=== PATIENT | female | born 1970 | race Two or more races ===

== ENCOUNTER 2017-06-04 09:54 | Emergency (ER) | payer MEDICAID, OTHER ==
[~2017-06-04] VITALS: Ht 162.6 cm; Wt 81.6 kg
[2017-06-04 11:12] LABS: Basophils # (auto) 0.1 uL; Basophils % (auto) 1.6 % (0.0-2.0); Eosinophils # (auto) 0.2 uL; Eosinophils % (auto) 3.5 % (0.0-7.0); Hematocrit 33.2 % (36.0-46.0); Lymphocytes # (auto) 1.7 uL; Lymphocytes % (auto) 23.9 % (10.0-50.0); Mean Corpuscular Hemoglobin 20.1 pg (28.0-32.0); Mean Corpuscular Hgb Conc. 30.1 g/dL (32.0-36.0); Mean Corpuscular Volume 66.7 fL (80.0-100.0); Mean Platelet Volume 8.4 fL (6.9-10.8); Monocytes # (auto) 0.4 uL; Neutrophils # (auto) 4.5 uL; Nucleated Red Blood Cells % 0.2 %; Platelet Count (auto) 411 10^3/uL (140-450)
[2017-06-04 11:13] LABS: Albumin 3.8 g/dL (3.4-5.0); Bilirubin, Total 0.2 mg/dL (0.2-1.0); Calcium 8.1 mg/dL (8.5-10.1); Potassium 3.8 mmol/L (3.5-5.1); Total Protein 7.9 g/dL (6.4-8.2)
[2017-06-04 13:52] LABS: Anisocytosis Moderate; Hypochromia Marked; Microcytosis Marked; Ovalocytes FEW; Platelet Estimate Adequate
[2017-06-04] MEDS ORDERED: SODIUM CHLORIDE 0.9% 1,000 ML IV ONE (15:01)
[2017-06-04 15:28] VITALS: BP 133/86
== END 2017-06-04 18:57 | disposition home or self-care (01) ==
LOC: ER 09:54
DX: D25.9 Leiomyoma of uterus, unspecified (principal); D50.9 Iron deficiency anemia, unspecified
CPT/HCPCS: 36415; 76830; 76856; 80053; 83735; 84443; 84702; 85025; 96360; 99285; J7030

== ENCOUNTER 2018-02-08 09:19 | Inpatient (IN) | payer MEDICAID ==
[~2018-02-08] VITALS: Ht 162.6 cm; Wt 89.2 kg
[2018-02-08] MEDS ORDERED: KETOROLAC TROMETH 60MG/2ML VIAL IM ONE (11:15)
[2018-02-08 13:53] LABS: Eosinophils # (auto) 0 uL; Eosinophils % (auto) 0.1 % (0.0-7.0); Lymphocytes # (auto) 2.1 uL; Monocytes # (auto) 0.6 uL
[2018-02-08 13:54] LABS: Basophils # (auto) 0.2 uL; Basophils % (auto) 1.6 % (0.0-2.0); Hematocrit 34.3 % (36.0-46.0); Hemoglobin 10.5 g/dL (12.2-16.2); Lymphocytes % (auto) 20.8 % (10.0-50.0); Mean Corpuscular Hgb Conc. 30.5 g/dL (32.0-36.0); Mean Corpuscular Volume 62.5 fL (80.0-100.0); Monocytes % (auto) 5.7 % (0.0-12.0); Neutrophils # (auto) 7.1 uL; Neutrophils % (auto) 71.8 % (37.0-80.0); Platelet Count (auto) 423 10^3/uL (140-450); Red Blood Cells 5.49 10^6/uL (4.0-5.20); White Blood Cell 9.9 10^3/uL (4.4-10.8)
[2018-02-08 13:59] LABS: Red Cell Distribution Width 21.9 % (11.8-14.3)
[2018-02-08 14:09] LABS: INR 1.02 (0.9-1.15); Partial Thromboplastin Time 28.8 sec (23.78-33.04); Prothrombin Time 10.9 sec (9.27-12.13)
[2018-02-08 14:24] LABS: Albumin 3.6 g/dL (3.4-5.0); BUN/Creatinine Ratio 18.8; Calcium 8.4 mg/dL (8.5-10.1); Magnesium 2.1 mg/dL (1.6-2.6); Potassium 3.4 mmol/L (3.5-5.1)
[2018-02-08 14:26] LABS: Bilirubin, Total 0.2 mg/dL (0.2-1.0)
[2018-02-08] MEDS ORDERED: DOCUSATE SOD 100 MG CAP PO PRN (16:15)
[2018-02-08] MEDS ORDERED: MORPHINE SULFATE 8mg/ml INJ SDV IV PRN (16:15)
[2018-02-08] MEDS ORDERED: ONDANSETRON HCL 4 MG/2 ML VIAL IV PRN (16:15)
[2018-02-08] MEDS ORDERED: TEMAZEPAM 15 MG CAP PO PRN (16:15)
[2018-02-08] MEDS ORDERED: ACETAMINOPHEN 325 MG TAB PO PRN (16:15)
[2018-02-08] MEDS ORDERED: POTASSIUM CHL 10 Meq TABLET PO ONE (16:15)
[2018-02-08] MEDS: HYDROcodone-ACET 5/325MG TAB PO PRN (16:58)
[2018-02-08] MEDS: diphenhdrAMINE HCL 25 MG CAP PO SCH ×2 (17:07→21:42)
[2018-02-08] MEDS: SODIUM CHLOR 0.9% PF (SALINE LOCK) 10ML VIAL/SYR IV SCH (21:42)
[2018-02-08] MEDS: ASCORBIC ACID 500 MG TAB PO SCH (21:43)
[2018-02-08 22:05] VITALS: BP 142/99
[2018-02-09] MEDS: SODIUM CHLOR 0.9% PF (SALINE LOCK) 10ML VIAL/SYR IV SCH ×3 (05:35→20:42)
[2018-02-09 05:49] VITALS: BP 149/87
[2018-02-09] MEDS: diphenhdrAMINE HCL 25 MG CAP PO SCH ×4 (06:09→20:45)
[2018-02-09 06:53] LABS: Basophils # (auto) 0.1 uL; Eosinophils # (auto) 0 uL; Lymphocytes # (auto) 1.5 uL
[2018-02-09 06:55] LABS: Basophils % (auto) 1.3 % (0.0-2.0); Eosinophils % (auto) 0.5 % (0.0-7.0); Hematocrit 33.4 % (36.0-46.0); Lymphocytes % (auto) 20.7 % (10.0-50.0); Mean Corpuscular Hemoglobin 18.9 pg (28.0-32.0); Mean Corpuscular Hgb Conc. 29.9 g/dL (32.0-36.0); Monocytes # (auto) 0.4 uL; Monocytes % (auto) 5.5 % (0.0-12.0); Neutrophils # (auto) 5.2 uL; Nucleated Red Blood Cells % 0.1 %; Platelet Count (auto) 373 10^3/uL (140-450); White Blood Cell 7.3 10^3/uL (4.4-10.8)
[2018-02-09 07:04] LABS: Albumin 3.7 g/dL (3.4-5.0); Calcium 8.8 mg/dL (8.5-10.1); Potassium 3.4 mmol/L (3.5-5.1)
[2018-02-09 07:07] LABS: % Iron Saturation 3.4 % (15-50)
[2018-02-09 07:15] LABS: Bilirubin, Total 0.3 mg/dL (0.2-1.0); Red Cell Distribution Width 21.4 % (11.8-14.3)
[2018-02-09 07:18] VITALS: BP 150/85
[2018-02-09] MEDS: HYDROcodone-ACET 5/325MG TAB PO PRN (08:33)
[2018-02-09 09:47] LABS: Ferritin 7.2 ng/mL (10-322); Folate (Folic Acid) 19.73 ng/mL (5.38-24)
[2018-02-09] MEDS: ZINC SULFATE 220 MG CAP PO SCH (09:48)
[2018-02-09] MEDS: ASCORBIC ACID 500 MG TAB PO SCH ×2 (09:49→20:41)
[2018-02-09] MEDS: TAMOXIFEN CITR 10 MG TAB PO SCH (09:49)
[2018-02-09] MEDS: MULTIPLE VITAMIN TAB PO SCH (09:49)
[2018-02-09] MEDS ORDERED: ANASTRAZOLE 1 MG PO SCH (10:00)
[2018-02-09 12:00] VITALS: BP 152/84
[2018-02-09] MEDS: SODIUM FERR GLUC 62.5MG/5ML 125 MG in SODIUM CHL 0.9% 100 ML IV SCH (12:00)
[2018-02-09] MEDS ORDERED: MIDAZOLAM HCL 1MG/1ML-2 ML VIAL ONE (12:47)
[2018-02-09] MEDS ORDERED: fentaNYL CITRATE 100 MCG/2 ML VL ONE (12:47)
[2018-02-09 16:10] VITALS: BP 152/74
[2018-02-09] MEDS ORDERED: HYDROmorphone HCL 2 MG/ML VL IV PRN (16:30)
[2018-02-09 23:00] VITALS: BP 137/67
[2018-02-10 04:55] VITALS: BP 132/60
[2018-02-10] MEDS: SODIUM CHLOR 0.9% PF (SALINE LOCK) 10ML VIAL/SYR IV SCH ×2 (05:14→14:00)
[2018-02-10] MEDS: diphenhdrAMINE HCL 25 MG CAP PO SCH ×2 (05:15→11:30)
[2018-02-10 09:00] VITALS: BP 149/75
[2018-02-10] MEDS: ASCORBIC ACID 500 MG TAB PO SCH (09:26)
[2018-02-10] MEDS: MULTIPLE VITAMIN TAB PO SCH (09:26)
[2018-02-10] MEDS: ZINC SULFATE 220 MG CAP PO SCH (09:26)
[2018-02-10] MEDS: HYDROcodone-ACET 5/325MG TAB PO PRN ×2 (09:26→15:01)
[2018-02-10] MEDS: TAMOXIFEN CITR 10 MG TAB PO SCH (09:27)
[2018-02-10] MEDS: SODIUM FERR GLUC 62.5MG/5ML 125 MG in SODIUM CHL 0.9% 100 ML IV SCH (12:22)
[2018-02-10 13:00] VITALS: BP 156/79
[2018-02-10] MEDS ORDERED: HYDR-4683 PO (14:05)
[2018-02-10] MEDS ORDERED: TAMO10TA PO (14:05)
[2018-02-10 16:33] VITALS: BP 158/79
[2018-02-12 11:25] LABS: Immunoglobulin G, Serum 1071 mg/dL (700-1600)
== END 2018-02-10 16:30 | disposition home or self-care (01) | DRG 861 ==
LOC: ER 09:23 → OVERFLOW 09:24 → WEST WING 17:30
PROVIDERS: ADMIT Internal Medicine; ATTEND Internal Medicine
PROC: 0QB23ZX Excision of Right Pelvic Bone, Percutaneous Approach, Diagnostic (ICD-10-PCS; principal; 2018-02-09)
DX: G89.3 Neoplasm related pain (acute) (chronic) (principal); C78.00 Secondary malignant neoplasm of unspecified lung; C90.00 Multiple myeloma not having achieved remission; C77.1 Secondary and unspecified malignant neoplasm of intrathoracic lymph nodes; E83.51 Hypocalcemia; F20.9 Schizophrenia, unspecified; C50.911 Malignant neoplasm of unspecified site of right female breast; I10 Essential (primary) hypertension; E87.6 Hypokalemia; T14.8XXA Other injury of unspecified body region, initial encounter; X58.XXXA Exposure to other specified factors, initial encounter; D50.9 Iron deficiency anemia, unspecified; D25.9 Leiomyoma of uterus, unspecified; J98.11 Atelectasis; Z79.810 Long term (current) use of selective estrogen receptor modulators (SERMs); Z83.3 Family history of diabetes mellitus; Y93.89 Activity, other specified; Y92.89 Other specified places as the place of occurrence of the external cause
CPT/HCPCS: 10022; 36415; 71045; 71250; 72192; 74176; 77012; 80053; 81025; 82105; 82232; 82378; 82607; 82728; 82746; 82784; 83540; 83550; 83615; 83735; 83883; 85025; 85610; 85730; 86300; 86301; 86304; 86334; 86335; 93005; 93971; 96372; 96374; J1885; J2250; J2405

== ENCOUNTER 2018-02-14 07:37 | Emergency (ER) | payer MEDICAID ==
[~2018-02-14] VITALS: Ht 167.6 cm; Wt 72.6 kg
[~2018-02-14 07:37] MED LIST: HYDR-4683 PO; TAMO10TA PO
[2018-02-14 08:20] LABS: Basophils # (auto) 0.2 uL; Eosinophils # (auto) 0 uL; Eosinophils % (auto) 0.1 % (0.0-7.0); Hemoglobin 10.9 g/dL (12.2-16.2); Monocytes # (auto) 0.8 uL
[2018-02-14 08:22] LABS: Basophils % (auto) 1.3 % (0.0-2.0); Hematocrit 36.4 % (36.0-46.0); Lymphocytes # (auto) 0.6 uL; Lymphocytes % (auto) 3.9 % (10.0-50.0); Mean Corpuscular Hemoglobin 19.1 pg (28.0-32.0); Mean Corpuscular Hgb Conc. 29.8 g/dL (32.0-36.0); Mean Corpuscular Volume 63.8 fL (80.0-100.0); Monocytes % (auto) 5.1 % (0.0-12.0); Neutrophils # (auto) 14.5 uL; Neutrophils % (auto) 89.6 % (37.0-80.0); Platelet Count (auto) 391 10^3/uL (140-450); White Blood Cell 16.2 10^3/uL (4.4-10.8)
[2018-02-14 08:36] LABS: INR 1.02 (0.9-1.15); Partial Thromboplastin Time 31.6 sec (23.78-33.04); Prothrombin Time 10.9 sec (9.27-12.13)
[2018-02-14 08:37] LABS: Albumin 3.7 g/dL (3.4-5.0); Calcium 9.7 mg/dL (8.5-10.1); Potassium 3.1 mmol/L (3.5-5.1)
[2018-02-14 08:41] LABS: BUN/Creatinine Ratio 29.7; Bilirubin, Total 0.2 mg/dL (0.2-1.0); Total Protein 8.6 g/dL (6.4-8.2)
[2018-02-14] MEDS ORDERED: MEPERIDINE HCL (25 MG/ML) 1ML VIAL IV ONE ×2 (09:45→18:30)
[2018-02-14] MEDS ORDERED: ONDANSETRON HCL 4 MG/2 ML VIAL IV ONE (09:45)
[2018-02-14] MEDS ORDERED: ASPirin 325 MG TAB PO ONE (10:00)
[2018-02-14] MEDS ORDERED: VANCOMYCIN 1GM/250ML 250 ML IV ONE (12:30)
[2018-02-14] MEDS ORDERED: PIPERACILLIN-TAZOB 3.375GM 100 ML IV ONE (12:30)
[2018-02-14] MEDS ORDERED: ENOXAPARIN SOD 80 MG/0.8ML SYRINGE SC ONE (13:30)
[2018-02-14] MEDS ORDERED: POTASSIUM CHL 20 Meq TABLET PO ONE (15:30)
[2018-02-14 18:12] VITALS: BP 153/106
== END 2018-02-14 18:59 | disposition short-term general hospital (02) ==
LOC: EDBD 07:37 → ER 07:41
DX: A41.9 Sepsis, unspecified organism (principal); R79.89 Other specified abnormal findings of blood chemistry; Z85.3 Personal history of malignant neoplasm of breast
CPT/HCPCS: 36415; 70450; 71045; 73700; 80053; 83605; 83880; 84484; 85025; 85610; 85730; 87040; 96365; 96366; 96367; 96372; 96375; 96376; 99291; J1650; J2175; J2405; J2543; J3370